=== PATIENT | male | born 2005 | race Caucasian/White ===

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

== ENCOUNTER 2025-04-24 05:24 | Emergency (ER) | payer BC, SELFPAY ==
[2025-04-24 05:35] VITALS: BP 121/79
[2025-04-24 06:11] VITALS: BMI 18.8
--- NOTE | 2025-04-24 06:12 | EDRN ---
Pt with pain L chest/clavicle into L jaw/head for few weeks. Pain has gotten worse to point he was unable to sleep last night. Pt complained of increased chest discomfort and sob which concerned mother prompting ED visit. Pt has been alternating
aleve and tylenol daily, applying heat and ice and putting his L arm in a sling to help with pain. Mother says she called pt's doctor at [facility] yesterday and is hoping to hear back over the weekend but pt got first available appointment - May 05.
She says pt will be tested for POTS, mast cell activation syndrome and vector borne illnesses. Pt feels like he has a 'tense ball' above his left clavicle which has been pulsing for few days and heaviness in his L chest. Mother adds she noticed
redness and is concerned pt may be starting with an infection. No fevers. Pt takes either zyrtec or zyrtec-D daily.
--- NOTE | 2025-04-24 07:11 | EDRN ---
Bhavik FRAZIER in room w/ pt.
--- NOTE | 2025-04-24 07:29 | ED.GENMED ---
History of Present Illness
General
Chief Complaint: Musculo-Skeletal Complaint
Time Seen by Provider: 04/24/25 07:03
History of Present Illness
History of Present Illness:
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 He
states that he feels as though his left-sided neck is pulsating and that his SC joints are popping out of place. Has a prior history of left SC joint internal fixation due to dislocation. His mother is also concerned about 'vector borne' diseases
such as Lyme. No tick bites.
Past History
Past History
ED Past Medical History: None
ED Past Surgical History: Other (Left Sternoclavicular repair)
Social History
Tobacco: Non-smoker
Alcohol: None
Personal: Single
Living: with family
Review of Systems
Review of Systems
Allergies reviewed?: Yes
All Other Systems: ROS reviewed and negative except as documented in HPI and ROS
Phy Exam
Physical Exam
Physical Exam:
GEN: Well appearing, NAD, WDWN
HEENT: Oral mucosa moist, no scleral icterus. Left trapezius appears to be in spasm with no erythema. Status post left SC joint surgical procedure, no erythema or bogginess to the soft tissues, no supraclavicular adenopathy or superior cervical
chain adenopathy.
Cardiac: Regular rate And rhythm, no murmur. Radial pulses 2+ bilat
Lung: No respiratory distress, no tachypnea, lungs CTAB
MSK: No gross deformity or injuries
Skin: Good color, no pallor or jaundice, no rashes
Neuro: AO x3, moves all extremities freely
Psych: Calm, cooperative
Course
Orders/Labs/Results
Orders:
Orders
04/24/25 07:43
CRP [C-Reactive Protein] Urgent
Complete Blood Count/With Diff Urgent
Comprehensive Metabolic Panel Urgent
ESR [Erythrocyte Sed Rate] Urgent
Lyme Progressive Urgent
04/24/25 08:00
Ketorolac [Toradol] 15 mg IV NOW STA
04/24/25 08:57
CT Head & Neck Angio W/wo IV Urgent
Comment:
Reason For Exam: headache, L neck pain, LUE paresthesia
04/24/25 09:06
Midazolam HCl [Versed] 1 mg IV NOW STA
04/24/25 09:34
Electrocardiogram (*1) Urgent
Reason for Study: QTc Monitoring
EKG- Treatment ONCE
Abnormal Lab Results
04/24/25
07:43
RBC 4.62 L 10^6/uL
(4.70-6.10)
Potassium 3.1 L mmol/L
(3.5-5.1)
Albumin 5.1 H g/dl
(3.5-5.0)
04/24/25 07:43
04/24/25 07:43
Vital Signs
Initial and Last Documented VS:
Initial Vital Signs
Temp Pulse Resp BP Pulse Ox
97.5 F 65 20 121/79 100
04/24/25 05:35 04/24/25 05:35 04/24/25 05:35 04/24/25 05:35 04/24/25 05:35
Last Documented Vital Signs
Temp Pulse Resp BP Pulse Ox
97.5 F 55 16 124/81 100
04/24/25 05:35 04/24/25 09:14 04/24/25 09:14 04/24/25 09:14 04/24/25 09:14
MDM/Problems Addressed
MDM/Problems Addressed:
Workup is grossly unremarkable. Angiography was obtained due to patient's known connective tissue disorder and reports of unilateral neck pain and paresthesias although this showed no carotid or vertebral artery dissection. I do suspect that a
large degree of his symptoms may be psychosomatic in nature however the majority of his neck pain is likely trapezius muscle spasm and associated radiculopathy. Will trial a course of steroids and muscle relaxants, encouraged outpatient follow-up
with his specialist and primary care
*Pulse Oximetry
SaO2: 100
Patient hypoxic: no
*Critical Care Note
Total Time (30-74mins, 75-104mins- exclusive of procedures): Not Applicable
ED Attending Note
-
Portions of this chart may have been created with voice recognition software.� Occasional wrong word or��sound alike� substitutions may have occurred due to the inherent limitations of voice recognition software.
Discharge Plan
Departure
Patient Disposition: Home (Routine Discharge)
Date of Disposition: 04/24/25
Time of Disposition: 10:27
Patient with high blood pressure during this ER visit?: No
Discharge Problem:
Spasm of left trapezius muscle
Instructions: Muscle spasm - ED (DC)
Prescriptions:
New
diazepam [Valium] 5 mg tablet
5 mg PO TID PRN (Reason: muscle spasm) Qty: 15 0RF
methylprednisolone [Medrol (Fredis)] 4 mg tablets,dose pack
See Rx Instructions .ROUTE .COMPLEX Qty: 21 0RF
Rx Instructions:
orally per package directions
No Action
cetirizine-pseudoephedrine [Zyrtec-D] 5-120 mg Tablet Extended Release 12 Hr
1 tab PO DAILY
Referrals:
Eber Urbano MD [Family Provider, Family Practice]
Interventions
Interventions:
*Risk Screen - Suicide Last Done: 04/24/25 05:35
*General Assessment Last Done: 04/24/25 05:35
*Neglect/Abuse Screening Last Done: 04/24/25 05:35
*ED- Fall Risk Assessment Last Done: 04/24/25 05:35
*ED COVID-19 Vaccine History Last Done: 04/24/25 05:35
*Nursing Disposition Last Done: 04/24/25 10:59
ED-Musculoskeletal Assessment Last Done: 04/24/25 06:11
Discharge Date and Time
Discharge Date/Time: 04/24/25 11:05
Print Language: YAKUT
[2025-04-24 07:45] VITALS: BP 127/76
[2025-04-24 08:05] LABS: Hematocrit 39.1 % (39.0-52.0); Hemoglobin 14.2 g/dL (13.0-18.0); Mean Corp Hgb Conc. 36.3 g/dL (33.0-37.0); Mean Corpuscular Volume 84.6 fL (80.0-94.0); Nucleated Red Blood Cells % 0 % (-); Platelet Count 228 10^3/uL (130-400); Red Cell Dist. Width 12.3 % (11.5-14.5)
[2025-04-24] MEDS: TORADOL 15 MG IV (08:18)
[2025-04-24 08:19] LABS: ALT (SGPT) 18 U/L (0-50); AST (SGOT) 27 U/L (17-59); Albumin 5.1 g/dl (3.5-5.0); Alkaline Phosphatase 52 U/L (38-126); Blood Urea Nitrogen 12 mg/dl (9-20); Calcium 10.0 mg/dl (8.4-10.2); Carbon Dioxide 29 mmol/L (22-30); Chloride 104 mmol/L (98-107); Estimated Creatinine Clearance > 125 ml/min; Glucose 89 mg/dl (70-99); Potassium 3.1 mmol/L (3.5-5.1); Sodium 141 mmol/L (135-145); Total Protein 7.8 g/dl (6.3-8.2); eGFR > 60.00
[2025-04-24 08:23] LABS: C-Reactive Protein < 5.00 mg/L (0.0-10.00)
--- NOTE | 2025-04-24 08:45 | EDRN ---
Bhavik Hannah PA in to speak w/ pt. Pt very anxious and Bhavik Hannah was informed.
[2025-04-24 09:14] VITALS: BP 124/81
--- NOTE | 2025-04-24 09:16 | EDRN ---
Pt remains very nervous at this time. Moving his L arm and continuously intermittently adjusting his position. Pain is decreased now to 6-8/10 from 7-9/10.
[2025-04-24] MEDS: VERSED 1 MG IV (09:23)
[2025-04-26 15:57] LABS: Lyme Antibody Screen, EIA Negative (Negative)
== END 2025-04-24 11:05 | disposition home or self-care (01) ==
LOC: EMR 05:24
PROVIDERS: Physician Assistant; EMERGENCY PHYSICIAN Emergency Medicine; FAMILY PHYSICIAN Family Medicine
DX: M62.838 Other muscle spasm (principal); G90.A Postural orthostatic tachycardia syndrome [POTS]; D89.40 Mast cell activation, unspecified; Q79.62 Hypermobile Ehlers-Danlos syndrome
CPT/HCPCS: 99284; 96374; 96375; 70496; 70498; 80053; 85025; 85652; 86140; 86618; 93005; Q9967

== ENCOUNTER → 2025-06-15 20:19 | Outpatient (REF) | payer BC, SELFPAY | LOC: PAVMRI 20:19 | PROVIDERS: ATTENDING PHYSICIAN Psychiatry & Neurology Neurology; FAMILY PHYSICIAN Internal Medicine Rheumatology | DX: R51.9 Headache, unspecified (principal) | CPT/HCPCS: 70551 ==

== ENCOUNTER → 2025-07-02 15:02 | Outpatient (REF) | payer BC, SELFPAY | LOC: RAD 15:02 | PROVIDERS: ATTENDING PHYSICIAN Orthopaedic Surgery Hand Surgery; FAMILY PHYSICIAN Internal Medicine Rheumatology | DX: S43.21 Anterior subluxation and dislocation of sternoclavicular joint (principal); Q79.60 Ehlers-Danlos syndrome, unspecified; M35.7 Hypermobility syndrome; S23.420D Sprain of sternoclavicular (joint) (ligament), subsequent encounter; M25.512 Pain in left shoulder | CPT/HCPCS: 71046; 71270; 73030; Q9967 ==